=== PATIENT | male | born 1970 | race Two or more races ===

== ENCOUNTER 2019-06-01 11:53 | Emergency (ER) | payer OTHER ==
[~2019-06-01] VITALS: Ht 152.4 cm; Wt 83.9 kg
[2019-06-01 12:00] VITALS: BP 130/80
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
[2019-06-01] MEDS ORDERED: LIDODERM700 M1 TOPIC (14:03)
[2019-06-01] MEDS ORDERED: IBUPROFEN600 MG ORAL (14:03)
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
--- NOTE | 2019-06-01 14:09 | NUR ---
ED Nurse Note: ED PA with pt
[2019-06-01 14:11] VITALS: BP 132/84
--- NOTE | 2019-06-01 14:13 | NUR ---
ER DISCHARGE NOTE: Patient is cleared to be discharged per ERMD, pt is aox4, on room air, with stable vital signs as documented. pt was given dc and prescription instructions, pt was able to verbalize understanding, pt id band removed. pt is able to ambulate with steady gait. pt took all belongings.
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
== END 2019-06-01 14:11 | disposition home or self-care (01) ==
LOC: EMR 13:50
DX: S22.41XA Multiple fractures of ribs, right side, initial encounter for closed fracture (principal); X58.XXXA Exposure to other specified factors, initial encounter; Y92.9 Unspecified place or not applicable; E11.9 Type 2 diabetes mellitus without complications
CPT/HCPCS: 71111; 99283